=== PATIENT | male | born 1980 | race Caucasian/White ===

== ENCOUNTER 2019-10-26 04:27 | Emergency (ER) | payer SELFPAY ==
--- NOTE | 2019-10-26 04:32 | ED.GENADULT ---
HPI - General Adult General Chief complaint: Unspecified Stated complaint: lac and coming off some ETOH Time Seen by Provider: 10/26/19 04:31 History of Present Illness HPI narrative: Patient is a 39-year-old male who presents the ER intoxicated with multiple issues. His first complaint is that he has a laceration near his thumb. 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 He ended up at [facility] in [place] and received some stitches over the dorsal aspect of his right hand but now is concerned about a cut on his thumb. His tetanus shot is up-to-date. He reports after being in the hospital he went [place] a casino and got kicked out after bleeding all over the tables. Reports he is very anxious and is concerned that he may need some Librium to prevent him from drinking until 10/27/2019. Patient reports that he has bad anxiety. 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 Patient has a bottle that was filled on 10/17/2019 for 60 tablets of 0.25 mg alprazolam. This bottle is empty. He does endorse abusing this medication over the last week. He reports that his mother 3 weeks ago and he is Gir[place] had her cremated and went out to [place] just brought her ashes. 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 Reports there is a 15-year-old client with tracheal stenosis that he has been caring for. Reports 10/24/2019, he went out to the house to care for the client when the family made him leave. They stated they are going to call the police on him. To me he reports that the 15-year-old client had been wanting to have sex with him since he first started caring for him. When asked if he did have sexual relations with a minor patient he is evasive will not give a clear answer. He says that he then had a conversation with [email or web address] [facility] about the situation. Patient has no thoughts of self-harm or to harm others at this time. No previous history of self-harm behavior. Related Data Allergies Allergy/AdvReac Type Severity Reaction Status Date / Time No Known Allergies Allergy Verified 12/09/11 17:29 Review of Systems Review of Systems: All systems reviewed & are unremarkable except as noted in HPI and below Constitutional: Constitutional: Denies chills, Denies fever(s) and Denies weakness ENT: Denies nasal congestion and Denies sore throat Respiratory: Respiratory: Denies cough and Denies dyspnea Integumentary/Breasts: Comments: Superficial cuts to the hands. Psychiatric: Psychiatric: Reports anxiety, Reports depression, Denies homicidal ideation and Denies suicidal ideation PMFSH Past Medical History Medical History (Updated 10/26/19 @ 06:48 by Arpan Vargas MD) Anxiety Surgical History Surgical History (Updated 10/26/19 @ 05:10 by Arpan Vargas MD) No pertinent past surgical history Social History Social History (Updated 10/26/19 @ 05:10 by Arpan Vargas MD) Alcohol intake: current Substance use type: prescription drug Exam Narrative: Exam Narrative: GENERAL: Intoxicated-appearing, well-nourished, and in no acute distress. HEAD: Normocephalic, atraumatic. EYES: PERRL and EOMI. ENT: Mucous membranes moist. CHEST: Clear to auscultation. No respiratory distress. HEART: Regular rate and rhythm. Normal peripheral pulses. EXTREMITIES: Normal range of motion. No edema. SKIN: Warm, dry, no rash. Superficial scrapes and cuts to the hands bilaterally. There is a sutured laceration over the right fifth MCP. This appears to be healing well without signs of infection. NEURO: Alert and oriented x3. PSYCH: Anxious and depressed, tangential thought pattern with many diffe
[2019-10-26 04:33] VITALS: BP 140/102; PULSE 105; RESP 16; TEMP 36.7; O2SAT 97
[2019-10-26 05:27] LABS: Basophils Absolute Auto 0.1 K/mm3 (0.0-0.1); Basophils Percent Auto 1.1 % (0.2-1.2); Eosinophils Absolute Auto 0.2 K/mm3 (0-0.3); Eosinophils Percent Auto 2.5 % (0-4.4); Hematocrit 48.1 % (42.0-52.0); Hemoglobin 16.8 g/dL (14.0-18.0); Immature Granulocyte Absolute 0.04 K/mm3 (0.00-0.031); Immature Granulocyte Percent A 0.4 % (0-0.5); Lymphocytes Absolute Auto 3.37 K/mm3 (0.9-3.2); Lymphocytes Percent Auto 37.2 % (18.3-44.2); Mean Corpuscular HGB Conc 34.9 g/dl (32-36); Mean Corpuscular Hemoglobin 33.5 pg (26-34); Mean Platelet Volume 8.6 fl (7.4-10.4); Monocytes Absolute Auto 0.8 K/mm3 (0.1-0.6); Monocytes Percent Auto 9.1 % (2.6-8.5); Neutrophils Absolute Auto 4.5 K/mm3 (1.3-6.7); Neutrophils Percent Auto 49.7 % (45.5-73.1); Platelet Count Result 295 k/mm3 (150-375); Red Blood Count 5.01 M/mm3 (4.6-6.20); Red Cell Distribution Width 13.5 % (11.5-14.5); White Blood Count 9.1 K/mm3 (4.5-10.0)
--- NOTE | 2019-10-26 05:28 | PC.NURSE ---
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 states the company knows about this edp made aware of these statements. pt to have a psych eval at this time.
[2019-10-26 05:29] LABS: Add Urine Microscopic? NO; Appearance Urine Clear (Clear); Bilirubin Urine Negative (Negative); Blood Urine Negative (Negative); Color Urine Colorless (Yellow); Glucose Urine UA Negative (Negative); Ketones Urine Negative (Negative); Leukocyte Esterase Ur Negative LEU/UL (Negative); Nitrate Urine Negative (Negative); Protein Urine Negative (Negative); Specific Grav Ur 1.005 (1.001-1.035); Urobilinogen Urine Negative mg/dL (<2.0)
[2019-10-26 05:44] LABS: Ethanol 251 mg/dL (<10)
[2019-10-26 05:45] LABS: Alanine Aminotransferase 20 U/L (4-50); Albumin Level 5.1 g/dL (3.5-5.1); Alkaline Phosphatase 87 U/L (38-126); Anion Gap 15 mmol/L (8-16); Aspartate Amino Transferase 40 U/L (17-59); Bilirubin,Total 0.4 mg/dL (0.2-1.3); Blood Urea Nitrogen 15 mg/dL (9-20); Calcium 9.9 mg/dL (8.4-10.2); Carbon Dioxide 26 mmol/L (22-30); Chloride 98 mmol/L (98-107); Estimated CRCL calculation 94 ml/min; Estimated Glomerular Filt Rate > 60; Glucose 83 mg/dL (75-110); Potassium 4.6 mmol/L (3.4-5.0); Sodium 139 mmol/L (137-145)
[2019-10-26 05:54] LABS: Amphetamine Screen Urine Negative (Negative); Barbiturate Screen Urine Negative (Negative); Benzodiazepines Screen Urine Positive (Negative); Cannabinoid Screen Urine Negative (Negative); Cocaine Screen Urine Negative (Negative); Methadone Screen Urine Negative (Negative); Opiate Screen Urine Negative (Negative); Phencyclidine Screen Urine Negative (Negative)
--- NOTE | 2019-10-26 06:03 | PC.NURSE ---
pt removed iv at this time and walked out of ed. this rn stopped patient, he stated that he was getting in his car and going to another hospital. jonnie centeno called at this time. pd stopped patient in parking lot.
== END 2019-10-26 06:35 | disposition left against medical advice (07) ==
LOC: ANHED 05:00
PROVIDERS: Emergency Provider Emergency Medicine
DX: F10.129 Alcohol abuse with intoxication, unspecified (principal); F41.9 Anxiety disorder, unspecified; Y90.8 Blood alcohol level of 240 mg/100 ml or more
CPT/HCPCS: 36415; 80053; 80307; 81003; 84443; 85025; 99283